=== PATIENT | male | born 1960 | race Caucasian/White ===

== ENCOUNTER 2016-10-17 08:52 | Emergency (ER) | payer BC ==
--- NOTE | 2016-10-17 10:02 | DIAGNOSTIC IMAGING REPORT ---
PROCEDURE: XR CHEST 1 VIEW INDICATION: CHEST PAIN TECHNIQUE: Portable AP view 0955 hours. COMPARISON: None. FINDINGS: Lungs are clear. Heart and mediastinum are normal. Thorax is normal. IMPRESSION: 1. Negative chest.
--- NOTE | 2016-10-17 12:26 | ED NURSING NOTES ---
Clinical Report - Nurses [facility] [address] [place] [address] 10/17/2016 8:53 Patient: SUNI PATHAK TRIAGE Triage time 0900. Acuity: LEVEL 2. Chief Complaint: CHEST PAIN. Alert. No acute distress. (anxious). --09:17 Tammy Castellano 09:13 10/17/16. BP: 179/98. HR: 83. RR: 16. O2 saturation: 97%. Temp: 97.6 F. Pain level now 2/10. --09:17 Tammy Castellano. Weight: 87.5 kg. Height/Length: 68 inches. BMI: 29.3. --09:13 Tammy Castellano. Medications Omeprazole Oral. --09:14 Tammy Castellano Lipitor Oral. --09:15 Tammy Castellano. Medication/allergy information source: the patient. --09:17 Tammy Castellano. Allergies No Known Drug Allergy. --09:15 Tammy Castellano. History Arrived by private vehicle. Historian: patient. Accompanied by family. This started yesterday. ( Pt with episodes of CP yesterday, awoke this am with it constant, c/o numbness to left face jaw and sts yesterday had numbness in left fingers). Treatment MEMBER SERVICES REPRESENTATIVE: None. SOCIAL HX: Never smoker. Occasional alcohol use. --09:17 Tammy Castellano. PROBLEMS: Elevated Cholesterol. Gastroesophageal Reflux Disease. --09:15 Tammy Castellano Diverticulitis. --09:16 Tammy Castellano. ADDITIONAL SURGERIES: Partial resection of colon. --09:16 Tammy Castellano. Interventions ID band on patient. To treatment room. --09:17 Tammy Castellano. PHYSICAL ASSESSMENT Ambulatory to room. Patient gowned. GENERAL / NEURO / PSYCH: Alert. Oriented X 4. Appears anxious. HEENT: Mucous membranes are pink. RESPIRATORY: Respirations not labored. Chest nontender. Breath sounds within normal limits. CVS: Normal sinus rhythm noted. Heart sounds within normal limits. Pulses within normal limits. Capillary refill less than 2 seconds. GI / : Abdomen soft and nontender. EXTREMITIES: No lower extremity edema. SKIN: Skin is warm and dry. Normal skin turgor. Skin is non-tender. --09:18 Tammy Castellano. NURSING PROGRESS NOTES 09:12 10/17/2016 Aspirin PO 324 mg given. Allergies verified and confirmed 5 rights. --09:12 Tammy Castellano EKG time: (937). EKG was ordered, performed by a tech and shown to the ED physician. --09:47 Emmie Bond ER Tech1 10:10 10/17/2016 Nitroglycerin SL 0.4 mg given. Allergies verified and confirmed 5 rights. --10:10 Tammy Castellano Reassessment after medication administered. He reports no complaints and he has had no adverse reaction. Overall patient status is improved- he states feels better. ( Post Ntg x 1). --10:24 Tammy Castellano 10:23 10/17/16. BP: 132/92. HR: 83. Pain level now 0/10. --10:24 Tammy Castellano The patient is resting quietly and has had no adverse reaction. Overall patient status is improved- he states feels better. Patient informed about reason for wait. Patient waiting for disposition. --11:40 Tammy Castellano 11:39 10/17/16. BP: 132/96. HR: 79. RR: 16. O2 saturation: 97%. Pain level now 0/10. --11:40 Tammy Castellano. DISPOSITION / DISCHARGE Departure time: 1240. Condition at departure: improved and stable. No learning barriers present. Discharge instructions provided and reviewed with the patient. Reviewed referral to a business job titles. Patient verbalized understanding. Written instructions provided in Frisian. The patient was discharged by the physician. He was discharged home and accompanied by spouse. He left the Emergency Department ambulatory and via private vehicle. Spouse driving. --12:41 Tammy Castellano 12:40 10/17/16. BP: 169/70. HR: 76. RR: 16. O2 saturation: 98%. Pain level now 0/10. --12:41 Tammy Castellano. Locked/Released at 10/17/2016 12:41 by Tammy Castellano,
--- NOTE | 2016-10-17 12:26 | ED ORDER SUMMARY ---
..... Patient: SUNI PATHAK OrderSheet [facility] VisitID: [id number] [place] [address] 56y, M Registration Date/Time: 10/17/2016 ORDER SHEET Weight: 87.5 kg Allergies: No Known Drug Allergy GENERAL ORDERS: Equipment Validation Engineer (Continuous) (CP) (09:09 10/17/2016 EBonham per protocol) (9:12 EBonham) CBC w Diff Urgent (09:12 10/17/2016 EBonham per protocol) (Ack 9:17 LNations ER Tech1) (10:21 NHouse ER Tech1) CMP Urgent (09:12 10/17/2016 EBonham per protocol) (Ack 9:17 LNations ER Tech1) (10:21 NHouse ER Tech1) Troponin-I Urgent (09:12 10/17/2016 EBonham per protocol) (Ack 9:18 LNations ER Tech1) (10:21 NHouse ER Tech1) Cardiac Panel Stat (09:12 10/17/2016 EBonham per protocol) (Ack 9:18 LNations ER Tech1) (Cancelled: Other9:35 Babs ARDON) EKG - ER Stat (09:12 10/17/2016 EBonham per protocol) (Ack 9:17 LNations ER Tech1) (9:31 LNations ER Tech1) Chest 1V Urgent (09:35 10/17/2016 Babs ARDON) (Ack 9:44 LNations ER Tech1) (10:21 NHouse ER Tech1) Equipment Validation Engineer (Continuous) (09:36 10/17/2016 Babs ARDON) (Ack 9:42 LNations ER Tech1) (10:10 EBonham) (Cancelled: Duplicate Order10:10 EBonham) UA-Culture if indicated Urgent (09:37 10/17/2016 Babs ARDON) (Ack 9:42 LNations ER Tech1) (11:22 NHouse ER Tech1) PT with INR Urgent (09:37 10/17/2016 Babs ARDON) (Ack 9:43 LNations ER Tech1) (10:21 NHouse ER Tech1) PTT Urgent (09:37 10/17/2016 Babs ARDON) (Ack 9:43 LNations ER Tech1) (10:21 NHouse ER Tech1) D-Dimer Urgent (09:37 10/17/2016 Babs ARDON) (Ack 9:43 LNations ER Tech1) (10:21 NHouse ER Tech1) BNP Urgent (09:37 10/17/2016 Babs ARDON) (Ack 9:43 LNations ER Tech1) (10:21 NHouse ER Tech1) Amylase Urgent (09:37 10/17/2016 Babs ARDON) (Ack 9:43 LNations ER Tech1) (10:21 NHouse ER Tech1) Lipase Urgent (09:37 10/17/2016 Babs ARDON) (Ack 9:43 LNations ER Tech1) (10:21 NHouse ER Tech1) CPK Urgent (09:37 10/17/2016 Babs ARDON) (Ack 9:43 LNations ER Tech1) (10:21 DEouse ER Tech1) Oxygen (2 L/min) (NC) (09:37 10/17/2016 Babs ARDON) (Ack 9:42 LNations ER Tech1) (10:10 Joe) Pulse oximeter (:10/17/2016 Babs ARDON) (Ack 9:42 LNations ER Tech1) (10:11 Joe) EKG - ER Stat (:10/17/2016 Babs ARDON) (9:38 Babs ARDON) (Cancelled: Other9:38 Babs ARDON) MEDICATION ORDERS: Aspirin PO 324 mg (NOW) (09:10 10/17/2016 Joe per protocol) (9:12 Joe) NitroGLYCERIN SL 0.4 mg (x3 PRN Chest Pain) (09:37 10/17/2016 Babs ARDON) (10:10 Joe) IV FLUIDS: ORDER SHEET NOTES: [Electronically signed by Tammy Castellano (12:41 10/17/2016)] [Electronically signed by Rogelio Simpson MD (18:10 10/22/2016)] [Electronically locked/signed by Tammy Castellano (12:41 10/17/2016)]
--- NOTE | 2016-10-17 12:26 | ED ORDER SUMMARY ---
..... Patient: SUNI PATHAK OrderSheet [facility] VisitID: [id number] [place] [address] 56y, M Registration Date/Time: 10/17/2016 ORDER SHEET Weight: 87.5 kg Allergies: No Known Drug Allergy GENERAL ORDERS: Domestic Laundry Worker (Continuous) (CP) (09:09 10/17/2016 EBonham per protocol) (9:12 EBonham) CBC w Diff Urgent (09:12 10/17/2016 EBonham per protocol) (Ack 9:17 LNations ER Tech1) (10:21 NHouse ER Tech1) CMP Urgent (09:12 10/17/2016 EBonham per protocol) (Ack 9:17 LNations ER Tech1) (10:21 NHouse ER Tech1) Troponin-I Urgent (09:12 10/17/2016 EBonham per protocol) (Ack 9:18 LNations ER Tech1) (10:21 NHouse ER Tech1) Cardiac Panel Stat (09:12 10/17/2016 EBonham per protocol) (Ack 9:18 LNations ER Tech1) (Cancelled: Other9:35 Babs ARDON) EKG - ER Stat (09:12 10/17/2016 EBonham per protocol) (Ack 9:17 LNations ER Tech1) (9:31 LNations ER Tech1) Chest 1V Urgent (09:35 10/17/2016 Babs ARDON) (Ack 9:44 LNations ER Tech1) (10:21 NHouse ER Tech1) Domestic Laundry Worker (Continuous) (09:36 10/17/2016 Babs ARDON) (Ack 9:42 LNations ER Tech1) (10:10 EBonham) (Cancelled: Duplicate Order10:10 EBonham) UA-Culture if indicated Urgent (09:37 10/17/2016 Babs ARDON) (Ack 9:42 LNations ER Tech1) (11:22 NHouse ER Tech1) PT with INR Urgent (09:37 10/17/2016 Babs ARDON) (Ack 9:43 LNations ER Tech1) (10:21 NHouse ER Tech1) PTT Urgent (09:37 10/17/2016 Babs ARDON) (Ack 9:43 LNations ER Tech1) (10:21 NHouse ER Tech1) D-Dimer Urgent (09:37 10/17/2016 Babs ARDON) (Ack 9:43 LNations ER Tech1) (10:21 NHouse ER Tech1) BNP Urgent (09:37 10/17/2016 Babs ARDON) (Ack 9:43 LNations ER Tech1) (10:21 NHouse ER Tech1) Amylase Urgent (09:37 10/17/2016 Babs ARDON) (Ack 9:43 LNations ER Tech1) (10:21 NHouse ER Tech1) Lipase Urgent (09:37 10/17/2016 Babs ARDON) (Ack 9:43 LNations ER Tech1) (10:21 NHouse ER Tech1) CPK Urgent (09:37 10/17/2016 Babs ARDON) (Ack 9:43 LNations ER Tech1) (10:21 ARouse ER Tech1) Oxygen (2 L/min) (NC) (09:37 10/17/2016 Babs ARDON) (Ack 9:42 LNations ER Tech1) (10:10 Joe) Pulse oximeter (:10/17/2016 Babs ARDON) (Ack 9:42 LNations ER Tech1) (10:11 Joe) EKG - ER Stat (:10/17/2016 Babs ARDON) (9:38 Babs ARDON) (Cancelled: Other9:38 Babs ARDON) MEDICATION ORDERS: Aspirin PO 324 mg (NOW) (09:10 10/17/2016 Joe per protocol) (9:12 Joe) NitroGLYCERIN SL 0.4 mg (x3 PRN Chest Pain) (09:37 10/17/2016 Babs ARDON) (10:10 Joe) IV FLUIDS: ORDER SHEET NOTES: [Electronically signed by Tammy Castellano (12:41 10/17/2016)] [Electronically signed by Rogelio Simpson MD (18:10 10/22/2016)] [Electronically locked/signed by Tammy Castellano (12:41 10/17/2016)]
--- NOTE | 2016-10-17 12:26 | ED CLINICAL REPORT ---
Clinical Report - Physicians/Mid Levels [facility] [address] [place] [address] 10/17/2016 8:53 Patient: SUNI PATHAK Time Seen: 09:13. Arrived- By private vehicle. Historian- patient. HISTORY OF PRESENT ILLNESS Chief Complaint: CHEST PAIN. At its maximum, severity described as 3 / 10. When seen in the E.D., severity described as 2 / 10. Not relieved by antacids. It is described as sharp and it is described as located in the central chest area and radiating to the neck. This started yesterday and is still present. It was abrupt in onset and has been waxing/waning. Onset during light activity. No nausea or vomiting. He has experienced diaphoresis. REVIEW OF SYSTEMS The patient has had mild calf pain involving the right leg (since yesterday). All systems otherwise negative, except as recorded above. PAST HISTORY JOSEPH - Lucien. Problems: DVT - Deep Venous Thrombosis. Diverticulitis. Elevated Cholesterol. Gastroesophageal Reflux Disease. Additional Surgeries: Partial resection of colon. Medications: Lipitor Oral. Omeprazole Oral. Allergies: No Known Drug Allergy. SOCIAL HISTORY Never smoker. Occasional alcohol use. Residence: [place]. FAMILY HISTORY Cancer in first-degree relative (mother and father). ADDITIONAL NOTES The nursing notes have been reviewed. PHYSICAL EXAM Vital Signs: 10/17/2016 09:13 BP: 179/98. HR: 83. RR: 16. O2 saturation: 97%. Temp: 97.6 F. Have been reviewed. Appearance: Alert. He is mildly obese and is well dressed. Eyes: Pupils equal, round and reactive to light. Eyes normal inspection. ENT: Pharynx normal. Neck: Normal inspection. Neck supple. CVS: Normal heart rate and rhythm. Heart sounds normal. Respiratory: No respiratory distress. Breath sounds normal. Abdomen: Soft and nontender. Bowel sounds normal. No organomegaly. No mass. Back: Normal external inspection. No CVA tenderness. Skin: Skin warm and dry. Normal skin color. No rash. Normal skin turgor. Extremities: Extremities exhibit normal ROM. No lower extremity edema. LABS, X-RAYS, AND EKG EKG: No acute process. Normal EKG. Rate: 80. Prior EKG unavailable. Chest X-ray: No acute disease. The X-rays were interpreted by the radiologist and contemporaneously by me. Laboratory Tests: UA-Culture if indicated: (ERNA: 10/17/2016 10:55) ( [facility] 10/17/2016 11:11) Final results Test Result Flag Units (Reference) URINE COLOR YELLOW URINE APPEARANCE CLEAR URINE GLUCOSE NEGATIVE (NEGATIVE) URINE BILIRUBIN NEGATIVE (NEGATIVE) URINE KETONE NEGATIVE (NEGATIVE) URINE SPECIFIC GRAVITY 1.010 (1.010-1.030) URINE PH 7.5 (5.0-8.0) URINE PROTEIN NEGATIVE (NEGATIVE) URINE UROBILINOGEN 0.2 EU/dL (0.2-1.0) URINE NITRITE NEGATIVE (NEGATIVE) URINE BLOOD NEGATIVE (NEGATIVE) URINE LEUK ESTERASE NEGATIVE (NEGATIVE) URINE RBC RARE rbc/hpf (0-1) URINE WBC NONE SEEN wbc/hpf (0-1) URINE EPITHELIAL CELLS 0-1 EPI/hpf (0-5) URINE BACTERIA NONE SEEN (NONE SEEN) URINE COMMENT CULT NOT INDICATED 1+ AMORPHOUSURINE CULTURES ARE SET-UP BASED ON THE FOLLOWING CRITERIA:POSITIVE NITRITEPOSITIVE LEUKOCYTE ESTERASEGREATER THAN 10 WHITE BLOOD CELLSMODERATE (2+) OR GREATER BACTERIA CBC w Diff: (ERNA: 10/17/2016 09:15) ( [facility] 10/17/2016 09:21) Final results Test Result Flag Units (Reference) WHITE BLOOD COUNT 7.0 K/uL (4.5-11.5) RED BLOOD COUNT 4.96 M/uL (4.50-5.90) HEMOGLOBIN 15.2 gm/dL (13.5-17.5) HEMATOCRIT 45.9 % (41.0-53.0) MEAN CELL VOLUME 93 fL (80-100) MEAN CORPUSCULAR HGB 31 pg (26-34) MEAN CORPUSCULAR HGB CONC 33 g/dL (31-37) RED CELL DISTRIBUTION WIDTH 13.3 % (11.6-14.8) PLATELET COUNT 200 K/uL (150-400) NEUTROPHIL % 65.0 % (50-75) LYMPH % 23.1 L % (25-40) MONO % 8.1 % (3-14) EOSINOPHIL % 3.2 % (0-4) BASOPHIL % 0.6 % (0-2) PT with INR: (ERNA: 10/17/2016 09:50) ( [facility] 10/17/2016 10:08) Final results Test Result Flag Units (Reference) INR 1.0 (0.8-1.2) Low Intensity Therapy: INR 1.5-2.0 PT range 18.5-23.1Mod.Intensity Therapy: INR 2.0-3.0 PT range 23.1-31.5High Intensity Therapy: INR 2.5-3.5 PT range 27.4-35.5High Intensity Therapy 2: INR 3.0-4.0 PT range 31.5-39.3 APTT 29 SECONDS (24-34) D-DIMER QUANTITATIVE 0.34 ug/mLFEU (0.27-0.52) The primary value of this quantitative assay relates toits negative predictive value (i.e. exclusion) of pulmonaryembolism/deep vein thrombosis/DIC.Elevated levels of d-dimer may also occur with:, age, cancer, inflammation, liver disease,post-op, infection, hematoma, coronary disease, peripheralarteriopathy, bleeding disorders and thrombolytic treatment.Results should be correlated with other clinical andradiological data.Testing Methodology: Latex Immunoassay BNP: (ERNA: 10/17/2016 09:15) ( [facility] 10/17/2016 10:04) Final results Test Result Flag Units (Reference) B-TYPE NATRIURETIC PEPTIDE 7.6 pg/ml (5-100) CHEM 13 PANEL: (ERNA: 10/17/2016 09:15) ( [facility] 10/17/2016 10:14) Final results Test Result Flag Units (Reference) GLUCOSE 115 H mg/dL (70-110) BUN 18 mg/dL (7-18) CREATININE 0.7 mg/dL (0.6-1.3) Estimated GFR >60 mL/min Estimated GFR- >60 mL/min Note: Persistent reduction over 3 months in eGFR<60 mL/min/1.73 m2 defines CKD. Patients with eGFR values>=60 mL/min/1.73 m2 may also have CKD if evidence ofpersistent proteinuria. Additional information may be foundat www.kidney.org. SODIUM 140 mmol/L (136-145) POTASSIUM 4.2 mmol/L (3.5-5.1) CHLORIDE 106 mmol/L (98-107) CARBON DIOXIDE 27 mmol/L (21-32) CALCIUM 8.5 mg/dL (8.5-10.1) TOTAL PROTEIN 7.1 g/dL (6.4-8.2) ALBUMIN 3.6 g/dL (3.3-5.0) BILIRUBIN, TOTAL 0.4 mg/dL (0.0-1.0) ALKALINE PHOSPHATASE 72 U/L (46-116) AST (SGOT) 19 U/L (15-37) ALT (SGPT) 48 U/L (12-78) MAGNESIUM 2.2 mg/dL (1.8-2.4) LIPASE 106 U/L (73-393) AMYLASE 46 U/L (25-115) CPK 76 U/L (24-260) TROPONIN I <0.05 ng/mL (0.00-1.5) TROPONIN REFERENCE RANGE:<0.1 NEGATIVE0.1-1.5 INDETERMINANT>1.5 POSITIVE . PROGRESS AND PROCEDURES Course of Care: The patient's symptoms are now gone. Vital signs have been reviewed. Alert. No acute distress. Breath sounds normal. No respiratory distress. Normal heart rate and rhythm. Heart sounds normal. Abdomen soft and nontender. Skin warm and dry. Patient/family counseled. Old medical records ordered. Old records unavailable. Disposition: Discharged. Condition: stable. CLINICAL IMPRESSION Chest pain. INSTRUCTIONS No strenuous activity. Avoid stimulants (such as cigarettes, coffee, cold medicines, sinus medicines, street drugs). Follow a low salt diet. Warnings: Further evaluation is necessary. GENERAL WARNINGS: Return or contact your physician immediately if your condition worsens or changes unexpectedly, if not improving as expected, or if other problems arise. Your Current Medications: CONTINUE TAKING THE FOLLOWING MEDICATIONS: Lipitor Oral. Omeprazole Oral. Follow-up: Follow up with a director of strategic sourcing- as recommended by your primary care physician. Understanding of the discharge instructions verbalized by patient. Follow-up with: Chintan Mcgraw MD, [facility], , [address], [place], [address] Follow up tomorrow. Call for an appointment. (Electronically signed by Rogelio Simpson MD 10/22/2016 18:10)
--- NOTE | 2016-10-17 12:26 | ED CLINICAL REPORT ---
Clinical Report - Physicians/Mid Levels [facility] [address] [place] [address] 10/17/2016 8:53 Patient: SUNI PATHAK Time Seen: 09:13. Arrived- By private vehicle. Historian- patient. HISTORY OF PRESENT ILLNESS Chief Complaint: CHEST PAIN. At its maximum, severity described as 3 / 10. When seen in the E.D., severity described as 2 / 10. Not relieved by antacids. It is described as sharp and it is described as located in the central chest area and radiating to the neck. This started yesterday and is still present. It was abrupt in onset and has been waxing/waning. Onset during light activity. No nausea or vomiting. He has experienced diaphoresis. REVIEW OF SYSTEMS The patient has had mild calf pain involving the right leg (since yesterday). All systems otherwise negative, except as recorded above. PAST HISTORY JOSEPH - Lucien. Problems: DVT - Deep Venous Thrombosis. Diverticulitis. Elevated Cholesterol. Gastroesophageal Reflux Disease. Additional Surgeries: Partial resection of colon. Medications: Lipitor Oral. Omeprazole Oral. Allergies: No Known Drug Allergy. SOCIAL HISTORY Never smoker. Occasional alcohol use. Residence: [place]. FAMILY HISTORY Cancer in first-degree relative (mother and father). ADDITIONAL NOTES The nursing notes have been reviewed. PHYSICAL EXAM Vital Signs: 10/17/2016 09:13 BP: 179/98. HR: 83. RR: 16. O2 saturation: 97%. Temp: 97.6 F. Have been reviewed. Appearance: Alert. He is mildly obese and is well dressed. Eyes: Pupils equal, round and reactive to light. Eyes normal inspection. ENT: Pharynx normal. Neck: Normal inspection. Neck supple. CVS: Normal heart rate and rhythm. Heart sounds normal. Respiratory: No respiratory distress. Breath sounds normal. Abdomen: Soft and nontender. Bowel sounds normal. No organomegaly. No mass. Back: Normal external inspection. No CVA tenderness. Skin: Skin warm and dry. Normal skin color. No rash. Normal skin turgor. Extremities: Extremities exhibit normal ROM. No lower extremity edema. LABS, X-RAYS, AND EKG EKG: No acute process. Normal EKG. Rate: 80. Prior EKG unavailable. Chest X-ray: No acute disease. The X-rays were interpreted by the radiologist and contemporaneously by me. Laboratory Tests: UA-Culture if indicated: (ERNA: 10/17/2016 10:55) ( [facility] 10/17/2016 11:11) Final results Test Result Flag Units (Reference) URINE COLOR YELLOW URINE APPEARANCE CLEAR URINE GLUCOSE NEGATIVE (NEGATIVE) URINE BILIRUBIN NEGATIVE (NEGATIVE) URINE KETONE NEGATIVE (NEGATIVE) URINE SPECIFIC GRAVITY 1.010 (1.010-1.030) URINE PH 7.5 (5.0-8.0) URINE PROTEIN NEGATIVE (NEGATIVE) URINE UROBILINOGEN 0.2 EU/dL (0.2-1.0) URINE NITRITE NEGATIVE (NEGATIVE) URINE BLOOD NEGATIVE (NEGATIVE) URINE LEUK ESTERASE NEGATIVE (NEGATIVE) URINE RBC RARE rbc/hpf (0-1) URINE WBC NONE SEEN wbc/hpf (0-1) URINE EPITHELIAL CELLS 0-1 EPI/hpf (0-5) URINE BACTERIA NONE SEEN (NONE SEEN) URINE COMMENT CULT NOT INDICATED 1+ AMORPHOUSURINE CULTURES ARE SET-UP BASED ON THE FOLLOWING CRITERIA:POSITIVE NITRITEPOSITIVE LEUKOCYTE ESTERASEGREATER THAN 10 WHITE BLOOD CELLSMODERATE (2+) OR GREATER BACTERIA CBC w Diff: (ERNA: 10/17/2016 09:15) ( [facility] 10/17/2016 09:21) Final results Test Result Flag Units (Reference) WHITE BLOOD COUNT 7.0 K/uL (4.5-11.5) RED BLOOD COUNT 4.96 M/uL (4.50-5.90) HEMOGLOBIN 15.2 gm/dL (13.5-17.5) HEMATOCRIT 45.9 % (41.0-53.0) MEAN CELL VOLUME 93 fL (80-100) MEAN CORPUSCULAR HGB 31 pg (26-34) MEAN CORPUSCULAR HGB CONC 33 g/dL (31-37) RED CELL DISTRIBUTION WIDTH 13.3 % (11.6-14.8) PLATELET COUNT 200 K/uL (150-400) NEUTROPHIL % 65.0 % (50-75) LYMPH % 23.1 L % (25-40) MONO % 8.1 % (3-14) EOSINOPHIL % 3.2 % (0-4) BASOPHIL % 0.6 % (0-2) PT with INR: (ERNA: 10/17/2016 09:50) ( [facility] 10/17/2016 10:08) Final results Test Result Flag Units (Reference) INR 1.0 (0.8-1.2) Low Intensity Therapy: INR 1.5-2.0 PT range 18.5-23.1Mod.Intensity Therapy: INR 2.0-3.0 PT range 23.1-31.5High Intensity Therapy: INR 2.5-3.5 PT range 27.4-35.5High Intensity Therapy 2: INR 3.0-4.0 PT range 31.5-39.3 APTT 29 SECONDS (24-34) D-DIMER QUANTITATIVE 0.34 ug/mLFEU (0.27-0.52) The primary value of this quantitative assay relates toits negative predictive value (i.e. exclusion) of pulmonaryembolism/deep vein thrombosis/DIC.Elevated levels of d-dimer may also occur with:, age, cancer, inflammation, liver disease,post-op, infection, hematoma, coronary disease, peripheralarteriopathy, bleeding disorders and thrombolytic treatment.Results should be correlated with other clinical andradiological data.Testing Methodology: Latex Immunoassay BNP: (ERNA: 10/17/2016 09:15) ( [facility] 10/17/2016 10:04) Final results Test Result Flag Units (Reference) B-TYPE NATRIURETIC PEPTIDE 7.6 pg/ml (5-100) CHEM 13 PANEL: (ERNA: 10/17/2016 09:15) ( [facility] 10/17/2016 10:14) Final results Test Result Flag Units (Reference) GLUCOSE 115 H mg/dL (70-110) BUN 18 mg/dL (7-18) CREATININE 0.7 mg/dL (0.6-1.3) Estimated GFR >60 mL/min Estimated GFR- >60 mL/min Note: Persistent reduction over 3 months in eGFR<60 mL/min/1.73 m2 defines CKD. Patients with eGFR values>=60 mL/min/1.73 m2 may also have CKD if evidence ofpersistent proteinuria. Additional information may be foundat www.kidney.org. SODIUM 140 mmol/L (136-145) POTASSIUM 4.2 mmol/L (3.5-5.1) CHLORIDE 106 mmol/L (98-107) CARBON DIOXIDE 27 mmol/L (21-32) CALCIUM 8.5 mg/dL (8.5-10.1) TOTAL PROTEIN 7.1 g/dL (6.4-8.2) ALBUMIN 3.6 g/dL (3.3-5.0) BILIRUBIN, TOTAL 0.4 mg/dL (0.0-1.0) ALKALINE PHOSPHATASE 72 U/L (46-116) AST (SGOT) 19 U/L (15-37) ALT (SGPT) 48 U/L (12-78) MAGNESIUM 2.2 mg/dL (1.8-2.4) LIPASE 106 U/L (73-393) AMYLASE 46 U/L (25-115) CPK 76 U/L (24-260) TROPONIN I <0.05 ng/mL (0.00-1.5) TROPONIN REFERENCE RANGE:<0.1 NEGATIVE0.1-1.5 INDETERMINANT>1.5 POSITIVE . PROGRESS AND PROCEDURES Course of Care: The patient's symptoms are now gone. Vital signs have been reviewed. Alert. No acute distress. Breath sounds normal. No respiratory distress. Normal heart rate and rhythm. Heart sounds normal. Abdomen soft and nontender. Skin warm and dry. Patient/family counseled. Old medical records ordered. Old records unavailable. Disposition: Discharged. Condition: stable. CLINICAL IMPRESSION Chest pain. INSTRUCTIONS No strenuous activity. Avoid stimulants (such as cigarettes, coffee, cold medicines, sinus medicines, street drugs). Follow a low salt diet. Warnings: Further evaluation is necessary. GENERAL WARNINGS: Return or contact your physician immediately if your condition worsens or changes unexpectedly, if not improving as expected, or if other problems arise. Your Current Medications: CONTINUE TAKING THE FOLLOWING MEDICATIONS: Lipitor Oral. Omeprazole Oral. Follow-up: Follow up with a soda drier feeder- as recommended by your primary care physician. Understanding of the discharge instructions verbalized by patient. Follow-up with: Chintan Mcgraw MD, [facility], , [address], [place], [address] Follow up tomorrow. Call for an appointment. (Electronically signed by Rogelio Simpson MD 10/22/2016 18:10)
--- NOTE | 2016-10-17 12:26 | ED NURSING NOTES ---
Clinical Report - Nurses [facility] [address] [place] [address] 10/17/2016 8:53 Patient: SUNI PATHAK TRIAGE Triage time 0900. Acuity: LEVEL 2. Chief Complaint: CHEST PAIN. Alert. No acute distress. (anxious). --09:17 Tammy Castellano 09:13 10/17/16. BP: 179/98. HR: 83. RR: 16. O2 saturation: 97%. Temp: 97.6 F. Pain level now 2/10. --09:17 Tammy Castellano. Weight: 87.5 kg. Height/Length: 68 inches. BMI: 29.3. --09:13 Tammy Castellano. Medications Omeprazole Oral. --09:14 Tammy Castellano Lipitor Oral. --09:15 Tammy Castellano. Medication/allergy information source: the patient. --09:17 Tammy Castellano. Allergies No Known Drug Allergy. --09:15 Tammy Castellano. History Arrived by private vehicle. Historian: patient. Accompanied by family. This started yesterday. ( Pt with episodes of CP yesterday, awoke this am with it constant, c/o numbness to left face jaw and sts yesterday had numbness in left fingers). Treatment DISPUTE RESOLUTION SPECIALIST: None. SOCIAL HX: Never smoker. Occasional alcohol use. --09:17 Tammy Castellano. PROBLEMS: Elevated Cholesterol. Gastroesophageal Reflux Disease. --09:15 Tammy Castellano Diverticulitis. --09:16 Tammy Castellano. ADDITIONAL SURGERIES: Partial resection of colon. --09:16 Tammy Castellano. Interventions ID band on patient. To treatment room. --09:17 Tammy Castellano. PHYSICAL ASSESSMENT Ambulatory to room. Patient gowned. GENERAL / NEURO / PSYCH: Alert. Oriented X 4. Appears anxious. HEENT: Mucous membranes are pink. RESPIRATORY: Respirations not labored. Chest nontender. Breath sounds within normal limits. CVS: Normal sinus rhythm noted. Heart sounds within normal limits. Pulses within normal limits. Capillary refill less than 2 seconds. GI / : Abdomen soft and nontender. EXTREMITIES: No lower extremity edema. SKIN: Skin is warm and dry. Normal skin turgor. Skin is non-tender. --09:18 Tammy Castellano. NURSING PROGRESS NOTES 09:12 10/17/2016 Aspirin PO 324 mg given. Allergies verified and confirmed 5 rights. --09:12 Tammy Castellano EKG time: (937). EKG was ordered, performed by a tech and shown to the ED physician. --09:47 Emmie Bond ER Tech1 10:10 10/17/2016 Nitroglycerin SL 0.4 mg given. Allergies verified and confirmed 5 rights. --10:10 Tammy Castellano Reassessment after medication administered. He reports no complaints and he has had no adverse reaction. Overall patient status is improved- he states feels better. ( Post Ntg x 1). --10:24 Tammy Castellano 10:23 10/17/16. BP: 132/92. HR: 83. Pain level now 0/10. --10:24 Tammy Castellano The patient is resting quietly and has had no adverse reaction. Overall patient status is improved- he states feels better. Patient informed about reason for wait. Patient waiting for disposition. --11:40 Tammy Castellano 11:39 10/17/16. BP: 132/96. HR: 79. RR: 16. O2 saturation: 97%. Pain level now 0/10. --11:40 Tammy Castellano. DISPOSITION / DISCHARGE Departure time: 1240. Condition at departure: improved and stable. No learning barriers present. Discharge instructions provided and reviewed with the patient. Reviewed referral to a rn endocrinology. Patient verbalized understanding. Written instructions provided in Portuguese. The patient was discharged by the physician. He was discharged home and accompanied by spouse. He left the Emergency Department ambulatory and via private vehicle. Spouse driving. --12:41 Tammy Castellano 12:40 10/17/16. BP: 169/70. HR: 76. RR: 16. O2 saturation: 98%. Pain level now 0/10. --12:41 Tammy Castellano. Locked/Released at 10/17/2016 12:41 by Tammy Castellano,
--- NOTE | 2016-10-22 18:11 | ED DISCHARGE INSTRUCTIONS ---
Patient: SUNI PATHAK General Instructions [facility] VisitID: [id number] [place] [address] 56y, M Registration Date/Time: 10/17/2016 Chest pain. INSTRUCTIONS No strenuous activity. Avoid stimulants (such as cigarettes, coffee, cold medicines, sinus medicines, street drugs). Follow a low salt diet. Warnings: Further evaluation is necessary. GENERAL WARNINGS: Return or contact your physician immediately if your condition worsens or changes unexpectedly, if not improving as expected, or if other problems arise. Your Current Medications: CONTINUE TAKING THE FOLLOWING MEDICATIONS: Lipitor Oral. Omeprazole Oral. Follow-up: Follow up with a mortgage operations manager- as recommended by your primary care physician. Understanding of the discharge instructions verbalized by patient. Follow-up with: Chintan Mcgraw MD, [facility], , [address] [facility] [address], [place], [address] Follow up tomorrow. Call for an appointment. ADDITIONAL INFORMATION Chest Pain, Uncertain Cause Chest pain can happen for a number of reasons. Sometimes the cause can not be determined. If yourcondition does not seem serious, and your pain does not appear to be coming from your heart, your doctor may recommend watching it closely. Sometimes the signs of a serious problem take more time to appear. Therefore, watch for the warning signs listed below. Home care After your visit, follow these recommendations: Rest today and avoid strenuous activity. Take any prescribed medicine as directed. Follow-up care Follow up with your doctor or this facility as instructed or if you do not start to feel better within 24 hours. Call 911 Get immediate medical attention if any of the following occur: A change in the type of pain: if it feels different, becomes more severe, lasts longer, or begins to spread into your shoulder, arm, neck, jaw or back Shortness of breath or increased pain with breathing Weakness, dizziness, or fainting Rapid heart beat Get prompt medical attention Call your doctor right away if any of the following occur: Cough with dark colored sputum (phlegm) or blood Fever of 100.4F(38C) or higher, or as directed by your health care provider Swelling, pain or redness in one leg Low-Salt Diet (2 Grams/Day) This diet eliminates foods that are high in salt and restricts the amount of salt that you cook with. It is most often used for patients with high blood pressure, edema (fluid retention), kidney, liver, and heart disease. Table salt contains the mineral sodium. The body needs sodium to work normally. But too much sodium can make your health problems worse. Your healthcare provider is recommending a low-salt (also called low-sodium) diet for you. Your total daily allowance of salt (sodium) is 2 grams. This equals 2,000 milligrams (mg). It is less than 1 teaspoon of table salt. This means you can have only about 700 mg of sodium at each meal. When you cook, limit the salt you use. And if you can avoid using salt, even better. Do not add salt at the table. So, throw away the saltshaker! When shopping, read the package labels. Salt is often called sodium on the label. Choose foods that are Salt-Free, Low Salt, or Very Low Salt. Note that foods with Reduced Salt may notlower your salt intake enough. Beverages OK: Tea, coffee, carbonated beverages, juices AVOID: Flavored international coffees, electrolyte replacement drinks, sports beverages Bread & Cereals OK: All regular bread, rolls, cereals, cakes; low-salt crackers, matzoh crackers AVOID: Salted crackers, pretzels, popcorn; persian toast, pancakes, muffins Fruits & Desserts OK: Ice cream, frozen yogurt, juice bars, gelatin (Jell-O), cookies and pies, sugar, honey, jelly, hard candy AVOID: Most pies, cakes and cookies prepared or processed with salt, instant pudding Meats OK: All fresh meat, fish, poultry, low-salt tuna AVOID: Smoked, pickled, brine-cured, or salted meats or fish. Thisincludes martínez, chipped beef, corned beef, hot dogs, luncheon meats, ham, kosher meats, salt pork, sausage, canned tuna, salted codfish, smokedsalmon, murillo, sardines, or anchovies. Dairy OK: Milk, chocolate milk, hot chocolate mix; eggs, Low Salt cheeses, yogurt, egg substitute AVOID: Processed cheese, cheese spreads, Roquefort, Camembert, and cottage cheese, buttermilk, instant breakfast drink Beans, Potatoes & Pasta OK: Dry beans, split peas, lentils, potatoes, rice, macaroni, noodles, spaghetti without added salt AVOID: Potato chips, tortilla chips, and similar products Soups OK: Low-salt soups and broths made with allowed foods AVOID: Bouillon cubes, soups with smoked or salted meats, regular soup and broth Vegetables OK: Most are okay; low-salt tomato and vegetable juices AVOID: Sauerkraut and other brine-soaked vegetables, pickles and other pickled vegetables, tomato juice, olives Seasoning & Spices OK: Most seasonings are okay. Good substitutes for salt include: fresh herb blends, Tabasco, lemon, garlic, marrero, vinegar, dry mustard, parsley, cilantro, horseradish, tomato paste, regular margarine, mayonnaise, butter, cream cheese, vegetable oil, cream, low-salt salad dressing and gravy AVOID: Regular ketchup, relishes, pickles, soy sauce, teriyaki sauce, Worcestershire sauce, BBQ sauce, tartar sauce, meat tenderizer, chili sauce, regular gravy, regular salad dressing You have been given the following additional information: Chest Pain, Uncertain Cause Diet, Low Salt (2Gm) No strenuous activity. (Electronically signed by Rogelio Simpson MD 10/22/2016 18:10)
--- NOTE | 2016-10-22 18:11 | ED MED RECONCILIATION SUMMARY ---
Patient: SUNI PATHAK Medication Reconciliation Report [facility] VisitID: [id number] [address] [place] [address] 56y, M Registration Date/Time: 10/17/2016 Weight: 87.5 kg Height/Length: 68 in. BMI: 29.3 ALLERGIES: No Known Drug Allergy The patient's Home Medications are listed below: CONTINUE TAKING THE FOLLOWING MEDICATIONS: Lipitor Oral Omeprazole Oral The source(s) of the original Home Medication information: patient The following Medications were given to the patient in the Emergency Department: Aspirin [PO] PO 324 mg, administered: 10/17/2016 9:12:00 AM Nitroglycerin [SL] SL 0.4 mg, administered: 10/17/2016 10:10:00 AM The following Medications were prescribed to the patient: None.
--- NOTE | 2016-10-22 18:11 | ED MED RECONCILIATION SUMMARY ---
Patient: SUNI PATHAK Medication Reconciliation Report [facility] VisitID: [id number] [address] [place] [address] 56y, M Registration Date/Time: 10/17/2016 Weight: 87.5 kg Height/Length: 68 in. BMI: 29.3 ALLERGIES: No Known Drug Allergy The patient's Home Medications are listed below: CONTINUE TAKING THE FOLLOWING MEDICATIONS: Lipitor Oral Omeprazole Oral The source(s) of the original Home Medication information: patient The following Medications were given to the patient in the Emergency Department: Aspirin [PO] PO 324 mg, administered: 10/17/2016 9:12:00 AM Nitroglycerin [SL] SL 0.4 mg, administered: 10/17/2016 10:10:00 AM The following Medications were prescribed to the patient: None.
--- NOTE | 2016-10-22 18:11 | ED MAR SUMMARY ---
..... Medication Administration Record [facility] [address] [place] [place] [address] Patient: SUNI PATHAK Visit ID: [id number] 56y, M Weight: 87.5 kg Height/Length: 68 in BMI: 29.3 ALLERGIES: No Known Drug Allergy Given 09:12 10/17/2016 Tammy Castellano, Medication Administered: ASPIRIN [PO], Dose: 324 mg PO. Medication Ordered: Aspirin PO 324 mg (NOW). Given 10:10 10/17/2016 Tammy Castellano, Medication Administered: NITROGLYCERIN [SL], Dose: 0.4 mg SL. Medication Ordered: NitroGLYCERIN SL 0.4 mg (x3 PRN Chest Pain).
--- NOTE | 2016-10-22 18:11 | ED MAR SUMMARY ---
..... Medication Administration Record [facility] [address] [place] [address] Patient: SUNI PATHAK Visit ID: [id number] 56y, M Weight: 87.5 kg Height/Length: 68 in BMI: 29.3 ALLERGIES: No Known Drug Allergy Given 09:12 10/17/2016 Tammy Castellano, Medication Administered: ASPIRIN [PO], Dose: 324 mg PO. Medication Ordered: Aspirin PO 324 mg (NOW). Given 10:10 10/17/2016 Tammy Castellano, Medication Administered: NITROGLYCERIN [SL], Dose: 0.4 mg SL. Medication Ordered: NitroGLYCERIN SL 0.4 mg (x3 PRN Chest Pain).
--- NOTE | 2016-10-22 18:11 | ED DISCHARGE INSTRUCTIONS ---
Patient: SUNI PATHAK General Instructions [facility] VisitID: [id number] [place] [address] 56y, M Registration Date/Time: 10/17/2016 Chest pain. INSTRUCTIONS No strenuous activity. Avoid stimulants (such as cigarettes, coffee, cold medicines, sinus medicines, street drugs). Follow a low salt diet. Warnings: Further evaluation is necessary. GENERAL WARNINGS: Return or contact your physician immediately if your condition worsens or changes unexpectedly, if not improving as expected, or if other problems arise. Your Current Medications: CONTINUE TAKING THE FOLLOWING MEDICATIONS: Lipitor Oral. Omeprazole Oral. Follow-up: Follow up with a slat basket top maker- as recommended by your primary care physician. Understanding of the discharge instructions verbalized by patient. Follow-up with: Chintan Mcgraw MD, [facility], , [address] [facility] [address], [place], [address] Follow up tomorrow. Call for an appointment. ADDITIONAL INFORMATION Chest Pain, Uncertain Cause Chest pain can happen for a number of reasons. Sometimes the cause can not be determined. If yourcondition does not seem serious, and your pain does not appear to be coming from your heart, your doctor may recommend watching it closely. Sometimes the signs of a serious problem take more time to appear. Therefore, watch for the warning signs listed below. Home care After your visit, follow these recommendations: Rest today and avoid strenuous activity. Take any prescribed medicine as directed. Follow-up care Follow up with your doctor or this facility as instructed or if you do not start to feel better within 24 hours. Call 911 Get immediate medical attention if any of the following occur: A change in the type of pain: if it feels different, becomes more severe, lasts longer, or begins to spread into your shoulder, arm, neck, jaw or back Shortness of breath or increased pain with breathing Weakness, dizziness, or fainting Rapid heart beat Get prompt medical attention Call your doctor right away if any of the following occur: Cough with dark colored sputum (phlegm) or blood Fever of 100.4F(38C) or higher, or as directed by your health care provider Swelling, pain or redness in one leg Low-Salt Diet (2 Grams/Day) This diet eliminates foods that are high in salt and restricts the amount of salt that you cook with. It is most often used for patients with high blood pressure, edema (fluid retention), kidney, liver, and heart disease. Table salt contains the mineral sodium. The body needs sodium to work normally. But too much sodium can make your health problems worse. Your healthcare provider is recommending a low-salt (also called low-sodium) diet for you. Your total daily allowance of salt (sodium) is 2 grams. This equals 2,000 milligrams (mg). It is less than 1 teaspoon of table salt. This means you can have only about 700 mg of sodium at each meal. When you cook, limit the salt you use. And if you can avoid using salt, even better. Do not add salt at the table. So, throw away the saltshaker! When shopping, read the package labels. Salt is often called sodium on the label. Choose foods that are Salt-Free, Low Salt, or Very Low Salt. Note that foods with Reduced Salt may notlower your salt intake enough. Beverages OK: Tea, coffee, carbonated beverages, juices AVOID: Flavored international coffees, electrolyte replacement drinks, sports beverages Bread & Cereals OK: All regular bread, rolls, cereals, cakes; low-salt crackers, matzoh crackers AVOID: Salted crackers, pretzels, popcorn; khmer toast, pancakes, muffins Fruits & Desserts OK: Ice cream, frozen yogurt, juice bars, gelatin (Jell-O), cookies and pies, sugar, honey, jelly, hard candy AVOID: Most pies, cakes and cookies prepared or processed with salt, instant pudding Meats OK: All fresh meat, fish, poultry, low-salt tuna AVOID: Smoked, pickled, brine-cured, or salted meats or fish. Thisincludes martínez, chipped beef, corned beef, hot dogs, luncheon meats, ham, kosher meats, salt pork, sausage, canned tuna, salted codfish, smokedsalmon, murillo, sardines, or anchovies. Dairy OK: Milk, chocolate milk, hot chocolate mix; eggs, Low Salt cheeses, yogurt, egg substitute AVOID: Processed cheese, cheese spreads, Roquefort, Camembert, and cottage cheese, buttermilk, instant breakfast drink Beans, Potatoes & Pasta OK: Dry beans, split peas, lentils, potatoes, rice, macaroni, noodles, spaghetti without added salt AVOID: Potato chips, tortilla chips, and similar products Soups OK: Low-salt soups and broths made with allowed foods AVOID: Bouillon cubes, soups with smoked or salted meats, regular soup and broth Vegetables OK: Most are okay; low-salt tomato and vegetable juices AVOID: Sauerkraut and other brine-soaked vegetables, pickles and other pickled vegetables, tomato juice, olives Seasoning & Spices OK: Most seasonings are okay. Good substitutes for salt include: fresh herb blends, Tabasco, lemon, garlic, marrero, vinegar, dry mustard, parsley, cilantro, horseradish, tomato paste, regular margarine, mayonnaise, butter, cream cheese, vegetable oil, cream, low-salt salad dressing and gravy AVOID: Regular ketchup, relishes, pickles, soy sauce, teriyaki sauce, Worcestershire sauce, BBQ sauce, tartar sauce, meat tenderizer, chili sauce, regular gravy, regular salad dressing You have been given the following additional information: Chest Pain, Uncertain Cause Diet, Low Salt (2Gm) No strenuous activity. (Electronically signed by Rogelio Simpson MD 10/22/2016 18:10)
== END 2016-10-17 12:40 | disposition home or self-care (01) ==
LOC: ED SRH 08:52
DX: R07.9 Chest pain, unspecified (principal); K21.9 Gastro-esophageal reflux disease without esophagitis
CPT/HCPCS: 90004; 90074; 90100; 90616; 91320; 91556; 92235; 92530; 92610; 92720; 94001; 94060; 95059

== ENCOUNTER 2016-11-20 09:39 | Outpatient (CLI) | payer BC ==
--- NOTE | 2016-11-22 09:28 | DIAGNOSTIC IMAGING REPORT ---
PROCEDURE: MR UPPER EXTREMITY W/O CONT-RT INDICATION: Right wrist pain, initial encounter TECHNIQUE: PD, gradient, and STIR coronal images. PD, FAT-SAT PD, and STIR axial images. PD and FAT-SAT PD sagittal images. COMPARISON: None. FINDINGS: Normal TFC. No evidence of a radial ulnar joint effusion. There is a 5 mm cystic collection adjacent to the extensor carpi radialis brevis tendon suggestive of a ganglion cyst. Extensor and flexor tendons are otherwise unremarkable. No fracture or dislocation. Intercarpal ligaments are grossly intact as visualized. IMPRESSION: 1. Ganglion cyst likely arising from the extensor carpi radialis brevis tendon 2. Normal TFC
== END 2016-11-20 23:00 ==
LOC: MRI SRH 09:39
DX: S63.591A Other specified sprain of right wrist, initial encounter (principal)